=== PATIENT | female | born 1955 | race Caucasian/White ===

== ENCOUNTER 2022-01-01 15:15 | Emergency (ER) | payer MEDICARE ==
[2022-01-01 16:08] LABS: #Monocytes 0.5 10x3/uL (0.0-1.1); #Neutrophils 6.3 10x3/uL (1.5-8.4); %Basophils 0.1 % (0.0-2.0); %Lymphocytes 21.5 % (18.0-47.0); %Monocytes 6.2 % (0.0-10.0); %Neutrophils 71.5 % (40.0-75.0); Hemoglobin 12.2 g/dL (12.0-15.5); Mean Corpuscular HGB CONC 32.4 g/dL (32.0-36.0); Mean Corpuscular Hemoglobin 27.9 pg (27.0-33.0); Mean Corpuscular Volume 85.8 fl (81.6-98.3); Mean Platelet Volume 9.4 fl (7.4-10.4); Platelet Count 265 10x3/uL (150-450); RBC Distribution Width 13.2 % (11.5-14.5); Red Blood Cell (RBC) Count 4.38 10x6/uL (3.90-5.03); White Blood Cell (WBC) Count 8.8 10x3/uL (3.5-10.5)
[2022-01-01 16:19] LABS: ALT (SGPT) 13 U/L (8-55); AST (SGOT) 13 U/L (5-34); Albumin 4.3 g/dL (3.4-4.8); Alkaline Phosphatase 130 U/L (40-110); Anion Gap 22 mmol/L (10-20); BUN (Urea Nitrogen) 11 mg/dL (9.8-20.1); Bilirubin, Total 0.2 mg/dL (0.2-1.2); Calc. Creatinine Clearance 0 mL/min (70-130); Calcium 8.9 mg/dL (7.8-10.44); Carbon Dioxide 21 mmol/L (23-31); Chloride 99 mmol/L (98-107); Globulin 3.1 g/dL (2.4-3.5); Glucose 144 mg/dL (80-115); Magnesium 1.8 mg/dL (1.6-2.6); Potassium 4.9 mmol/L (3.5-5.1); Protein, Total 7.4 g/dL (5.8-8.1); Sodium 137 mmol/L (136-145)
[2022-01-01 16:43] LABS: Free T4 (Free Thyroxine) 1.1 ng/dL (0.70-1.48); Thyroid Stimulating Hormone 2.599 uIU/mL (0.35-4.94)
== END 2022-01-01 17:20 | disposition home or self-care (01) ==
LOC: CSHERS 15:15
DX: Z71.1 Person with feared health complaint in whom no diagnosis is made (principal); E11.9 Type 2 diabetes mellitus without complications
CPT/HCPCS: 80053; 83735; 83880; 84439; 84443; 84481; 84484; 85025; 93005

== ENCOUNTER 2022-12-20 03:41 | Emergency (ER) | payer MEDICARE ==
[2022-12-20] MEDS ORDERED: Metoclopramide HCl 10 MG TAB ONE (03:56)
[2022-12-20] MEDS ORDERED: Haloperidol Lactate 5 MG/ML VIAL ONE (05:02)
== END 2022-12-20 06:15 | disposition home or self-care (01) ==
LOC: CSHERS 03:41
DX: R11.0 Nausea (principal); E11.9 Type 2 diabetes mellitus without complications; J44.9 Chronic obstructive pulmonary disease, unspecified
CPT/HCPCS: 96372; 99283; J1630

== ENCOUNTER 2022-12-29 17:37 | Inpatient (IN) | payer MEDICARE ==
[2022-12-29 18:23] LABS: Acetaminophen Less than 10 mcg/mL (10.0-30.0); Alcohol Less than 10.0 mg/dL (Less than 10); Lipase 25 U/L (8-78); Magnesium 1.2 mg/dL (1.6-2.6); Salicylate Less than 8.0 mg/dL (15.0-30.0)
[2022-12-29 18:24] LABS: #Eosinphils 0.1 10x3/uL (0.0-0.5); #Monocytes 1.1 10x3/uL (0.0-1.1); #Neutrophils 9.4 10x3/uL (1.5-8.4); %Basophils 0.2 % (0.0-2.0); %Eosinophils 0.7 % (0.0-6.0); %Lymphocytes 13.8 % (18.0-47.0); %Monocytes 8.5 % (0.0-10.0); %Neutrophils 75.7 % (40.0-75.0); ALT (SGPT) 15 U/L (8-55); AST (SGOT) 21 U/L (5-34); Albumin 4.6 g/dL (3.4-4.8); Alkaline Phosphatase 142 U/L (40-110); Anion Gap 20 mmol/L (10-20); BUN (Urea Nitrogen) 7 mg/dL (9.8-20.1); Bilirubin, Total 0.5 mg/dL (0.2-1.2); Calc. Creatinine Clearance 0 mL/min (70-130); Calcium 9.2 mg/dL (7.8-10.44); Carbon Dioxide 27 mmol/L (23-31); Chloride 75 mmol/L (98-107); Estimated GFR 77; Globulin 2.9 g/dL (2.4-3.5); Glucose 137 mg/dL (80-115); Hemoglobin 14.1 g/dL (12.0-15.5); Mean Corpuscular HGB CONC 35.3 g/dL (32.0-36.0); Mean Corpuscular Hemoglobin 27.3 pg (27.0-33.0); Mean Corpuscular Volume 77.2 fl (81.6-98.3); Platelet Count 382 10x3/uL (150-450); Protein, Total 7.5 g/dL (5.8-8.1); RBC Distribution Width 12.9 % (11.5-14.5); Red Blood Cell (RBC) Count 5.17 10x6/uL (3.90-5.03); White Blood Cell (WBC) Count 12.4 10x3/uL (3.5-10.5)
[2022-12-29 18:27] LABS: Sodium 118 mmol/L (136-145)
[2022-12-29 18:29] LABS: Bilirubin Neg (Negative); Blood, Urine 10 (Negative); Clarity Clear (Clear); Glucose, Urine (Dipstick) Normal (Negative); Ketone, Urine Negative (Negative); Leukocyte 500 (Negative); Nitrite Negative (Negative); Protein, Urine (Dipstick) 15 mg/dl (Neg-Trace); Urobilinogen Normal mg/dL (Less than 2)
[2022-12-29 18:37] LABS: Amphetamine Not Detected (NotDetected); Barbiturates Screen Not Detected (NotDetected); Benzodiazepine Screen Not Detected (NotDetected); Cocaine Metabolite Screen Not Detected (NotDetected); Methadone Not Detected (NotDetected); Methamphetamine Not Detected (NotDetected); Opiate Screen Not Detected (NotDetected); Oxycodone Screen Not Detected (NotDetected); Phencyclidine (PCP) Not Detected (NotDetected); THC/Cannabinoid Screen Not Detected (NotDetected); Tricyclic Screen Not Detected (NotDetected)
[2022-12-29 18:38] LABS: CAUTI Indications for Culture Alt mental st,lethar; RBC/HPF 0-3 HPF (0-3); Squamous Epithelial 0-3 HPF (0-3); WBC/HPF 0-3 HPF (0-3)
[2022-12-29 18:39] LABS: Bacteria/HPF 3+ HPF (None Seen); Mucous/LPF 1+ LPF (<2+); Urine Culture Reflex No No
[2022-12-29 18:49] LABS: Actual Bicarbonate (HCO3v) 27.4 mEq/L (22-28); Base Excess 4.9 mEq/L (-2 - +2); Calcium, Ionized (venous) 0.87 mmol/L (1.16-1.32); Chloride (VBG) 77 mmol/L (98-106); Hematocrit-VBG 45 % (36.0-47.0); Hemoglobin (Hb) 15.2 g/dL (11.7-16.1); Potassium (VBG) 5.82 mmol/L (3.70-5.30); Puncture Site Other Site; RapidComm Collect By CBN; Sodium 115.6 mmol/L (133-146); pH (venous) 7.523 (7.32-7.43)
[2022-12-29] MEDS ORDERED: Senokot S 8.6-50 MG TAB PO PRN (19:14)
[2022-12-29] MEDS ORDERED: Glucagon 1 MG/ML KIT IM PRN (19:14)
[2022-12-29] MEDS ORDERED: Guaifenesin DM 100-10/5 ML UDCUP PO PRN (19:14)
[2022-12-29] MEDS ORDERED: HumaLOG 300 UNITS/3 ML VIAL SC PRN (19:14)
[2022-12-29] MEDS ORDERED: Calcium Carbonate 500 MG ChewTAB PO PRN (19:14)
[2022-12-29] MEDS ORDERED: Dextrose 5% in Water 1,000 ML IV PRN (19:14)
[2022-12-29] MEDS ORDERED: Dextrose 50% Abboject 50 ML SYRINGE SLOW IVP PRN (19:14)
[2022-12-29] MEDS ORDERED: Ipratropium/Albuterol 3 ML NEB NEB PRN (19:23)
[2022-12-29] MEDS ORDERED: LOKELMA 10 GM PACKET PO SCH (20:30)
[2022-12-29] MEDS ORDERED: Magnesium 2 GM/50 ML(in water) 2 GM in Premix Bag 1 BAG IVPB SCH (20:30)
[2022-12-29] MEDS ORDERED: Sodium Chloride 3% 100 ML IVPB SCH ×2 (20:30→23:59)
[2022-12-29] MEDS ORDERED: Famotidine/PF 20 mg/2ml Vial ONE (21:36)
[2022-12-29] MEDS: cefTRIAXone\\ROCEPHIN 1 GM in Sodium Chloride 0.9% 100 ML IVPB SCH (21:40)
[2022-12-29] MEDS: Famotidine/PF 20 mg/2ml Vial SLOW IVP SCH (21:41)
[2022-12-29] MEDS: Mometasone/Formoterol 60 PUFF AER INH SCH (22:19)
[2022-12-29] MEDS: Acetaminophen 325 MG TAB PO PRN (23:01)
[2022-12-29 23:54] LABS: Anion Gap 16 mmol/L (10-20); BUN (Urea Nitrogen) 6 mg/dL (9.8-20.1); Calc. Creatinine Clearance 175 mL/min (70-130); Calcium 8.4 mg/dL (7.8-10.44); Carbon Dioxide 28 mmol/L (23-31); Chloride 78 mmol/L (98-107); Estimated GFR 93; Glucose 121 mg/dL (80-115)
[2022-12-29 23:56] LABS: Sodium 119 mmol/L (136-145)
[2022-12-30 04:40] LABS: Hemoglobin 12.5 g/dL (12.0-15.5); Mean Corpuscular HGB CONC 34.8 g/dL (32.0-36.0); Mean Corpuscular Hemoglobin 26.9 pg (27.0-33.0); Mean Corpuscular Volume 77.4 fl (81.6-98.3); Mean Platelet Volume 8.7 fl (7.4-10.4); Platelet Count 313 10x3/uL (150-450); RBC Distribution Width 12.9 % (11.5-14.5); Red Blood Cell (RBC) Count 4.64 10x6/uL (3.90-5.03); White Blood Cell (WBC) Count 11.9 10x3/uL (3.5-10.5)
[2022-12-30 04:54] LABS: Anion Gap 17 mmol/L (10-20); BUN (Urea Nitrogen) 6 mg/dL (9.8-20.1); Calc. Creatinine Clearance 186 mL/min (70-130); Calcium 8.6 mg/dL (7.8-10.44); Carbon Dioxide 26 mmol/L (23-31); Chloride 81 mmol/L (98-107); Estimated GFR 97; Glucose 121 mg/dL (80-115); Magnesium 1.9 mg/dL (1.6-2.6); Potassium 2.8 mmol/L (3.5-5.1); Sodium 121 mmol/L (136-145)
[2022-12-30 04:55] LABS: MDiff Complete? YES
[2022-12-30] MEDS: Acetaminophen 325 MG TAB PO PRN ×2 (05:15→14:58)
[2022-12-30 05:25] LABS: Platelet Adequacy Comment Appears Adequate
[2022-12-30 05:26] LABS: Band 10 % (5-11); Lymphocytes 16 % (21-51); Monocytes 9 % (0-10); Neutrophil 65 % (42-75); RBC Morph Comment Within Normal Limits
[2022-12-30] MEDS ORDERED: Potassium Chloride 20 MEQ TAB PO SCH ×2 (05:30→08:30)
[2022-12-30] MEDS: Ondansetron PF 4 MG/2 ML Vial IVP PRN ×2 (05:37→14:11)
[2022-12-30 08:25] LABS: Anion Gap 18 mmol/L (10-20); BUN (Urea Nitrogen) 6 mg/dL (9.8-20.1); Calc. Creatinine Clearance 180 mL/min (70-130); Calcium 8.5 mg/dL (7.8-10.44); Carbon Dioxide 23 mmol/L (23-31); Chloride 81 mmol/L (98-107); Estimated GFR 96; Glucose 112 mg/dL (80-115)
[2022-12-30 08:28] LABS: Sodium 119 mmol/L (136-145)
[2022-12-30] MEDS: Mometasone/Formoterol 60 PUFF AER INH SCH ×2 (08:30→20:14)
[2022-12-30] MEDS: Famotidine/PF 20 mg/2ml Vial SLOW IVP SCH ×2 (08:32→20:46)
[2022-12-30] MEDS ORDERED: Sodium Chloride 3% 100 ML IVPB SCH (09:30)
[2022-12-30 11:01] LABS: Anion Gap 14 mmol/L (10-20); BUN (Urea Nitrogen) 6 mg/dL (9.8-20.1); Calc. Creatinine Clearance 173 mL/min (70-130); Calcium 8.9 mg/dL (7.8-10.44); Carbon Dioxide 31 mmol/L (23-31); Chloride 83 mmol/L (98-107); Estimated GFR 91; Glucose 113 mg/dL (80-115); Potassium 3.4 mmol/L (3.5-5.1); Sodium 125 mmol/L (136-145)
[2022-12-30 12:52] LABS: Potassium, Urine 10.3 mmol/L
[2022-12-30 14:49] LABS: Anion Gap 17 mmol/L (10-20); BUN (Urea Nitrogen) 5 mg/dL (9.8-20.1); Calc. Creatinine Clearance 175 mL/min (70-130); Carbon Dioxide 26 mmol/L (23-31); Chloride 87 mmol/L (98-107); Estimated GFR 93; Glucose 107 mg/dL (80-115); Potassium 3.7 mmol/L (3.5-5.1); Sodium 126 mmol/L (136-145)
[2022-12-30] MEDS ORDERED: Melatonin 3 MG TAB PO PRN (15:21)
[2022-12-30] MEDS ORDERED: HYDROcodone/Acetaminophen 5/325 mg Tablet PO SCH (18:30)
[2022-12-30] MEDS ORDERED: FLUoxetine HCl 10 MG CAP PO SCH (19:00)
[2022-12-30] MEDS ORDERED: Bupropion 150 MG SR TAB PO SCH (19:00)
[2022-12-30] MEDS: cefTRIAXone\\ROCEPHIN 1 GM in Sodium Chloride 0.9% 100 ML IVPB SCH (20:41)
[2022-12-30] MEDS: hydrOXYzine Pamoate 25 mg Capsule PO SCH (20:48)
[2022-12-30] MEDS: Nystatin Powder 15 GM BOT TOP SCH (21:15)
[2022-12-30 22:06] LABS: Sodium 122 mmol/L (136-145)
[2022-12-31 03:48] LABS: #Monocytes 1.1 10x3/uL (0.0-1.1); #Neutrophils 7.8 10x3/uL (1.5-8.4); %Basophils 0.3 % (0.0-2.0); %Eosinophils 0.2 % (0.0-6.0); %Lymphocytes 17.6 % (18.0-47.0); %Monocytes 10.3 % (0.0-10.0); %Neutrophils 71.1 % (40.0-75.0); Hemoglobin 12.9 g/dL (12.0-15.5); Mean Corpuscular HGB CONC 33.9 g/dL (32.0-36.0); Mean Corpuscular Hemoglobin 26.9 pg (27.0-33.0); Mean Corpuscular Volume 79.3 fl (81.6-98.3); Mean Platelet Volume 9.1 fl (7.4-10.4); Platelet Count 332 10x3/uL (150-450); RBC Distribution Width 13.2 % (11.5-14.5); Red Blood Cell (RBC) Count 4.79 10x6/uL (3.90-5.03)
[2022-12-31 03:55] LABS: Anion Gap 15 mmol/L (10-20); BUN (Urea Nitrogen) 9 mg/dL (9.8-20.1); Calc. Creatinine Clearance 180 mL/min (70-130); Calcium 8.5 mg/dL (7.8-10.44); Carbon Dioxide 27 mmol/L (23-31); Chloride 85 mmol/L (98-107); Estimated GFR 96; Glucose 98 mg/dL (80-115); Magnesium 1.8 mg/dL (1.6-2.6); Potassium 3.2 mmol/L (3.5-5.1); Sodium 124 mmol/L (136-145)
[2022-12-31] MEDS: Levothyroxine Sodium 100 MCG TAB PO SCH (05:33)
[2022-12-31] MEDS: Bupropion 150 MG SR TAB PO SCH (08:43)
[2022-12-31] MEDS: hydrOXYzine Pamoate 25 mg Capsule PO SCH ×4 (08:44→20:34)
[2022-12-31] MEDS: FLUoxetine HCl 10 MG CAP PO SCH (08:44)
[2022-12-31] MEDS: Acetaminophen 325 MG TAB PO PRN ×2 (08:44→22:35)
[2022-12-31] MEDS: Nystatin Powder 15 GM BOT TOP SCH ×2 (08:44→20:35)
[2022-12-31] MEDS: Famotidine/PF 20 mg/2ml Vial SLOW IVP SCH ×2 (08:44→20:31)
[2022-12-31] MEDS: Mometasone/Formoterol 60 PUFF AER INH SCH ×2 (09:24→19:18)
[2022-12-31] MEDS ORDERED: HYDROcodone/Acetaminophen 5/325 mg Tablet PO SCH (10:00)
[2022-12-31 10:29] LABS: Anion Gap 15 mmol/L (10-20); BUN (Urea Nitrogen) 8 mg/dL (9.8-20.1); Calc. Creatinine Clearance 167 mL/min (70-130); Calcium 8.5 mg/dL (7.8-10.44); Carbon Dioxide 25 mmol/L (23-31); Chloride 86 mmol/L (98-107); Estimated GFR 88; Glucose 225 mg/dL (80-115); Potassium 3.2 mmol/L (3.5-5.1); Sodium 123 mmol/L (136-145)
[2022-12-31 15:30] LABS: Anion Gap 15 mmol/L (10-20); BUN (Urea Nitrogen) 7 mg/dL (9.8-20.1); Calc. Creatinine Clearance 174 mL/min (70-130); Calcium 8.8 mg/dL (7.8-10.44); Carbon Dioxide 29 mmol/L (23-31); Chloride 84 mmol/L (98-107); Estimated GFR 93; Glucose 102 mg/dL (80-115); Potassium 3.6 mmol/L (3.5-5.1); Sodium 124 mmol/L (136-145)
[2022-12-31] MEDS ORDERED: Lorazepam 2 MG/ML VIAL SLOW IVP PRN (17:44)
[2022-12-31] MEDS: HYDROcodone/Acetaminophen 5/325 mg Tablet PO PRN (19:57)
[2022-12-31] MEDS: cefTRIAXone\\ROCEPHIN 1 GM in Sodium Chloride 0.9% 100 ML IVPB SCH (20:31)
[2022-12-31] MEDS ORDERED: CLOZAPINE 100 MG PO SCH (21:00)
[2022-12-31] MEDS: Ondansetron PF 4 MG/2 ML Vial IVP PRN (21:14)
[2023-01-01 03:31] LABS: #Neutrophils 9.4 10x3/uL (1.5-8.4); %Basophils 0.2 % (0.0-2.0); %Eosinophils 0.1 % (0.0-6.0); %Monocytes 8.2 % (0.0-10.0); %Neutrophils 75.9 % (40.0-75.0); Mean Corpuscular HGB CONC 33.8 g/dL (32.0-36.0); Mean Platelet Volume 8.6 fl (7.4-10.4); Platelet Count 312 10x3/uL (150-450); RBC Distribution Width 13.3 % (11.5-14.5); Red Blood Cell (RBC) Count 4.44 10x6/uL (3.90-5.03); White Blood Cell (WBC) Count 12.3 10x3/uL (3.5-10.5)
[2023-01-01 03:45] LABS: Anion Gap 14 mmol/L (10-20); BUN (Urea Nitrogen) 6 mg/dL (9.8-20.1); Calc. Creatinine Clearance 187 mL/min (70-130); Calcium 8.8 mg/dL (7.8-10.44); Carbon Dioxide 27 mmol/L (23-31); Chloride 86 mmol/L (98-107); Estimated GFR 97; Glucose 131 mg/dL (80-115); Potassium 3.1 mmol/L (3.5-5.1); Sodium 124 mmol/L (136-145)
[2023-01-01] MEDS ORDERED: Nitroglycerin 2% Ointment 1 INCH/1 GM Packet TOP SCH (04:45)
[2023-01-01] MEDS: HYDROcodone/Acetaminophen 5/325 mg Tablet PO PRN ×3 (05:04→21:06)
[2023-01-01] MEDS: Levothyroxine Sodium 100 MCG TAB PO SCH (05:06)
[2023-01-01] MEDS: Mometasone/Formoterol 60 PUFF AER INH SCH ×2 (07:16→19:10)
[2023-01-01] MEDS ORDERED: hydrALAZINE 20 MG/ML VIAL SLOW IVP PRN (07:35)
[2023-01-01] MEDS ORDERED: Tolvaptan 15 MG TAB PO SCH (08:15)
[2023-01-01] MEDS: FLUoxetine HCl 10 MG CAP PO SCH (08:49)
[2023-01-01] MEDS: Bupropion 150 MG SR TAB PO SCH (08:49)
[2023-01-01] MEDS: Famotidine/PF 20 mg/2ml Vial SLOW IVP SCH ×2 (08:49→20:50)
[2023-01-01] MEDS: hydrOXYzine Pamoate 25 mg Capsule PO SCH ×4 (08:49→20:50)
[2023-01-01] MEDS: Nystatin Powder 15 GM BOT TOP SCH ×2 (08:50→20:50)
[2023-01-01] MEDS: Ondansetron PF 4 MG/2 ML Vial IVP PRN (09:56)
[2023-01-01 11:22] LABS: Anion Gap 14 mmol/L (10-20); BUN (Urea Nitrogen) 6 mg/dL (9.8-20.1); Calc. Creatinine Clearance 177 mL/min (70-130); Calcium 9.2 mg/dL (7.8-10.44); Carbon Dioxide 29 mmol/L (23-31); Chloride 88 mmol/L (98-107); Estimated GFR 94; Glucose 138 mg/dL (80-115); Potassium 3.3 mmol/L (3.5-5.1); Sodium 128 mmol/L (136-145)
[2023-01-01] MEDS ORDERED: Potassium Chloride 20 MEQ TAB PO SCH (13:15)
[2023-01-01] MEDS ORDERED: carBAMazepine 100 mg Chewable Tablet PO SCH (15:00)
[2023-01-01 17:02] LABS: Anion Gap 14 mmol/L (10-20); BUN (Urea Nitrogen) 6 mg/dL (9.8-20.1); Calc. Creatinine Clearance 170 mL/min (70-130); Calcium 9.6 mg/dL (7.8-10.44); Carbon Dioxide 31 mmol/L (23-31); Chloride 88 mmol/L (98-107); Estimated GFR 90; Glucose 133 mg/dL (80-115); Potassium 3.8 mmol/L (3.5-5.1); Sodium 129 mmol/L (136-145)
[2023-01-01] MEDS: cefTRIAXone\\ROCEPHIN 1 GM in Sodium Chloride 0.9% 100 ML IVPB SCH (20:50)
[2023-01-01] MEDS: QUEtiapine 100 MG TAB PO SCH (20:50)
[2023-01-01] MEDS: Valproate Sodium 500 MG, Admixture Fee 1 EACH in Sodium Chloride 0.9% 100 ML IVPB SCH (20:51)
[2023-01-01 21:19] LABS: Sodium 131 mmol/L (136-145)
[2023-01-02] MEDS: HYDROcodone/Acetaminophen 5/325 mg Tablet PO PRN ×3 (03:36→17:47)
[2023-01-02 04:36] LABS: Hemoglobin 12.4 g/dL (12.0-15.5); MDiff Complete? YES; Mean Corpuscular HGB CONC 33.2 g/dL (32.0-36.0); Mean Corpuscular Hemoglobin 27.2 pg (27.0-33.0); Mean Corpuscular Volume 81.8 fl (81.6-98.3); Mean Platelet Volume 8.8 fl (7.4-10.4); Platelet Count 307 10x3/uL (150-450); RBC Distribution Width 13.5 % (11.5-14.5); Red Blood Cell (RBC) Count 4.56 10x6/uL (3.90-5.03); White Blood Cell (WBC) Count 11.8 10x3/uL (3.5-10.5)
[2023-01-02 04:47] LABS: Anion Gap 14 mmol/L (10-20); BUN (Urea Nitrogen) 9 mg/dL (9.8-20.1); Calc. Creatinine Clearance 155 mL/min (70-130); Calcium 9.2 mg/dL (7.8-10.44); Carbon Dioxide 30 mmol/L (23-31); Chloride 90 mmol/L (98-107); Estimated GFR 81; Glucose 143 mg/dL (80-115); Magnesium 1.9 mg/dL (1.6-2.6); Potassium 4.1 mmol/L (3.5-5.1); Sodium 130 mmol/L (136-145)
[2023-01-02 05:21] LABS: Platelet Adequacy Comment Appears Adequate
[2023-01-02 05:22] LABS: RBC Morph Comment Within Normal Limits
[2023-01-02 05:28] LABS: Band 6 % (5-11); Eosinophils 1 % (0-10); Lymphocytes 15 % (21-51); Monocytes 9 % (0-10); Neutrophil 69 % (42-75)
[2023-01-02] MEDS: Levothyroxine Sodium 100 MCG TAB PO SCH (05:43)
[2023-01-02] MEDS: Mometasone/Formoterol 60 PUFF AER INH SCH ×2 (07:40→19:36)
[2023-01-02] MEDS: FLUoxetine HCl 10 MG CAP PO SCH (08:55)
[2023-01-02] MEDS: Bupropion 150 MG SR TAB PO SCH (08:55)
[2023-01-02] MEDS: hydrOXYzine Pamoate 25 mg Capsule PO SCH ×4 (08:55→20:53)
[2023-01-02] MEDS: Nystatin Powder 15 GM BOT TOP SCH ×2 (08:55→21:30)
[2023-01-02] MEDS: Valproate Sodium 500 MG, Admixture Fee 1 EACH in Sodium Chloride 0.9% 100 ML IVPB SCH ×2 (08:55→20:54)
[2023-01-02] MEDS ORDERED: VANCOMYCIN 2 GRAM/400 ML BAG 2 GM in Premix Bag 1 BAG IVPB SCH (11:45)
[2023-01-02 14:11] LABS: Potassium 4.3 mmol/L (3.5-5.1); Sodium 130 mmol/L (136-145)
[2023-01-02 14:12] LABS: Anion Gap 15 mmol/L (10-20); Carbon Dioxide 26 mmol/L (23-31); Chloride 93 mmol/L (98-107)
[2023-01-02 14:13] LABS: BUN (Urea Nitrogen) 10 mg/dL (9.8-20.1); Calc. Creatinine Clearance 170 mL/min (70-130); Estimated GFR 93
[2023-01-02 14:14] LABS: Calcium 9.2 mg/dL (7.8-10.44); Glucose 120 mg/dL (80-115)
[2023-01-02] MEDS: HumaLOG 300 UNITS/3 ML VIAL SC PRN (20:14)
[2023-01-02] MEDS ORDERED: Lorazepam 2 MG/ML VIAL SLOW IVP SCH (20:30)
[2023-01-02] MEDS: QUEtiapine 100 MG TAB PO SCH (20:59)
[2023-01-02] MEDS: cefTRIAXone\\ROCEPHIN 1 GM in Sodium Chloride 0.9% 100 ML IVPB SCH (20:59)
[2023-01-02] MEDS ORDERED: Vancomycin HCl 1 GM in Sodium Chloride 0.9% 250 ML 250 ML IVPB SCH (21:00)
[2023-01-02 21:12] LABS: Anion Gap 15 mmol/L (10-20); BUN (Urea Nitrogen) 12 mg/dL (9.8-20.1); CK (CPK) 74 U/L (29-168); Calc. Creatinine Clearance 151 mL/min (70-130); Carbon Dioxide 25 mmol/L (23-31); Chloride 92 mmol/L (98-107); Estimated GFR 81; Glucose 177 mg/dL (80-115); Magnesium 1.7 mg/dL (1.6-2.6); Potassium 3.9 mmol/L (3.5-5.1); Sodium 128 mmol/L (136-145)
[2023-01-03 03:13] LABS: #Monocytes 0.9 10x3/uL (0.0-1.1); #Neutrophils 9.8 10x3/uL (1.5-8.4); %Basophils 0.2 % (0.0-2.0); %Lymphocytes 12.4 % (18.0-47.0); %Monocytes 7.6 % (0.0-10.0); %Neutrophils 79.2 % (40.0-75.0); Hemoglobin 11.6 g/dL (12.0-15.5); Mean Corpuscular HGB CONC 32.9 g/dL (32.0-36.0); Mean Corpuscular Hemoglobin 26.9 pg (27.0-33.0); Mean Corpuscular Volume 81.7 fl (81.6-98.3); Mean Platelet Volume 8.2 fl (7.4-10.4); Platelet Count 261 10x3/uL (150-450); RBC Distribution Width 13.6 % (11.5-14.5); Red Blood Cell (RBC) Count 4.32 10x6/uL (3.90-5.03); White Blood Cell (WBC) Count 12.3 10x3/uL (3.5-10.5)
[2023-01-03 03:20] LABS: Anion Gap 15 mmol/L (10-20); BUN (Urea Nitrogen) 11 mg/dL (9.8-20.1); Calc. Creatinine Clearance 175 mL/min (70-130); Calcium 8.8 mg/dL (7.8-10.44); Carbon Dioxide 24 mmol/L (23-31); Chloride 93 mmol/L (98-107); Estimated GFR 96; Glucose 142 mg/dL (80-115); Potassium 3.9 mmol/L (3.5-5.1); Sodium 128 mmol/L (136-145)
[2023-01-03] MEDS: VANCOMYCIN 1.25 GM/250 ML BAG 1.25 GM in Premix Bag 1 BAG IVPB SCH ×2 (04:18→16:19)
[2023-01-03] MEDS: Levothyroxine Sodium 100 MCG TAB PO SCH (05:51)
[2023-01-03] MEDS: Mometasone/Formoterol 60 PUFF AER INH SCH ×2 (07:30→19:20)
[2023-01-03] MEDS: Valproate Sodium 500 MG, Admixture Fee 1 EACH in Sodium Chloride 0.9% 100 ML IVPB SCH ×2 (08:01→20:59)
[2023-01-03] MEDS: Nystatin Powder 15 GM BOT TOP SCH ×2 (08:03→21:04)
[2023-01-03] MEDS: HYDROcodone/Acetaminophen 5/325 mg Tablet PO PRN (12:10)
[2023-01-03] MEDS: Miconazole 2% Cream 30 GM TUBE TOP SCH ×2 (14:17→21:03)
[2023-01-03 16:14] LABS: Norclozapine Less than 20 ng/mL (Not Estab.)
[2023-01-03 17:15] LABS: Anion Gap 13 mmol/L (10-20); BUN (Urea Nitrogen) 8 mg/dL (9.8-20.1); Calc. Creatinine Clearance 189 mL/min (70-130); Calcium 9.1 mg/dL (7.8-10.44); Carbon Dioxide 30 mmol/L (23-31); Chloride 91 mmol/L (98-107); Estimated GFR 98; Glucose 98 mg/dL (80-115); Potassium 4.2 mmol/L (3.5-5.1); Sodium 130 mmol/L (136-145)
[2023-01-03] MEDS: ACYCLOVIR SODIUM IVPB SCH (20:42)
[2023-01-03] MEDS: SODIUM CHLORIDE IVPB SCH (20:42)
[2023-01-03] MEDS: ADMIXTURE FEE IVPB SCH (20:42)
[2023-01-03] MEDS: cefTRIAXone\\ROCEPHIN 1 GM in Sodium Chloride 0.9% 100 ML IVPB SCH (20:59)
[2023-01-04] MEDS: ADMIXTURE FEE IVPB SCH ×3 (03:11→20:34)
[2023-01-04] MEDS: ACYCLOVIR SODIUM IVPB SCH ×3 (03:11→20:34)
[2023-01-04] MEDS: SODIUM CHLORIDE IVPB SCH ×3 (03:11→20:34)
[2023-01-04 03:30] LABS: #Monocytes 0.9 10x3/uL (0.0-1.1); #Neutrophils 7.5 10x3/uL (1.5-8.4); %Basophils 0.1 % (0.0-2.0); %Lymphocytes 13.3 % (18.0-47.0); %Monocytes 8.7 % (0.0-10.0); %Neutrophils 77.2 % (40.0-75.0); Hemoglobin 11.1 g/dL (12.0-15.5); Mean Corpuscular HGB CONC 33.7 g/dL (32.0-36.0); Mean Corpuscular Hemoglobin 27.4 pg (27.0-33.0); Mean Corpuscular Volume 81.2 fl (81.6-98.3); Mean Platelet Volume 8.5 fl (7.4-10.4); Platelet Count 263 10x3/uL (150-450); RBC Distribution Width 13.6 % (11.5-14.5); Red Blood Cell (RBC) Count 4.05 10x6/uL (3.90-5.03); White Blood Cell (WBC) Count 9.8 10x3/uL (3.5-10.5)
[2023-01-04 03:32] LABS: Anion Gap 14 mmol/L (10-20); BUN (Urea Nitrogen) 7 mg/dL (9.8-20.1); Calc. Creatinine Clearance 198 mL/min (70-130); Calcium 8.8 mg/dL (7.8-10.44); Carbon Dioxide 27 mmol/L (23-31); Chloride 92 mmol/L (98-107); Estimated GFR 99; Glucose 137 mg/dL (80-115); Sodium 129 mmol/L (136-145)
[2023-01-04 03:33] LABS: ALT (SGPT) 8 U/L (8-55); AST (SGOT) 10 U/L (5-34); Albumin 3.2 g/dL (3.4-4.8); Alkaline Phosphatase 93 U/L (40-110); Bilirubin, Direct 0.1 mg/dL (0.1-0.3); Bilirubin, Total 0.2 mg/dL (0.2-1.2); Protein, Total 5.8 g/dL (5.8-8.1)
[2023-01-04 03:40] LABS: Vancomycin, Trough 15.3 ug/mL
[2023-01-04] MEDS: Levothyroxine Sodium 100 MCG TAB PO SCH (05:22)
[2023-01-04] MEDS: VANCOMYCIN 1.25 GM/250 ML BAG 1.25 GM in Premix Bag 1 BAG IVPB SCH ×2 (05:22→17:08)
[2023-01-04] MEDS: Mometasone/Formoterol 60 PUFF AER INH SCH ×2 (07:50→19:07)
[2023-01-04] MEDS: Nystatin Powder 15 GM BOT TOP SCH ×2 (08:29→21:07)
[2023-01-04] MEDS: Miconazole 2% Cream 30 GM TUBE TOP SCH ×2 (08:29→21:24)
[2023-01-04] MEDS ORDERED: Lorazepam 0.5 MG TAB PO SCH (09:00)
[2023-01-04] MEDS: Sodium Chloride 1 GM TAB PO SCH (09:17)
[2023-01-04] MEDS: Valproate Sodium 500 MG, Admixture Fee 1 EACH in Sodium Chloride 0.9% 100 ML IVPB SCH ×2 (09:17→21:07)
[2023-01-04] MEDS ORDERED: Magnevist 469MG/ML 20 ML VIAL ONE ×2 (10:17→13:38)
[2023-01-04] MEDS: HYDROcodone/Acetaminophen 5/325 mg Tablet PO PRN (12:46)
[2023-01-04] MEDS: cefTRIAXone\\ROCEPHIN 1 GM in Sodium Chloride 0.9% 100 ML IVPB SCH (21:04)
[2023-01-05 04:09] LABS: #Monocytes 0.8 10x3/uL (0.0-1.1); #Neutrophils 6.4 10x3/uL (1.5-8.4); %Basophils 0.1 % (0.0-2.0); %Lymphocytes 14.2 % (18.0-47.0); %Monocytes 9.5 % (0.0-10.0); Mean Corpuscular HGB CONC 33.6 g/dL (32.0-36.0); Mean Corpuscular Hemoglobin 27.2 pg (27.0-33.0); Mean Corpuscular Volume 80.7 fl (81.6-98.3); Mean Platelet Volume 9.1 fl (7.4-10.4); Platelet Count 280 10x3/uL (150-450); RBC Distribution Width 13.5 % (11.5-14.5); Red Blood Cell (RBC) Count 4.05 10x6/uL (3.90-5.03); White Blood Cell (WBC) Count 8.6 10x3/uL (3.5-10.5)
[2023-01-05 04:14] LABS: Anion Gap 14 mmol/L (10-20); BUN (Urea Nitrogen) 8 mg/dL (9.8-20.1); Calc. Creatinine Clearance 215 mL/min (70-130); Calcium 8.8 mg/dL (7.8-10.44); Carbon Dioxide 25 mmol/L (23-31); Chloride 94 mmol/L (98-107); Estimated GFR 100; Glucose 133 mg/dL (80-115); Magnesium 1.5 mg/dL (1.6-2.6); Potassium 3.8 mmol/L (3.5-5.1); Sodium 129 mmol/L (136-145)
[2023-01-05] MEDS: SODIUM CHLORIDE IVPB SCH ×2 (04:23→12:29)
[2023-01-05] MEDS: ADMIXTURE FEE IVPB SCH ×2 (04:23→12:29)
[2023-01-05] MEDS: ACYCLOVIR SODIUM IVPB SCH ×2 (04:23→12:29)
[2023-01-05] MEDS: Levothyroxine Sodium 100 MCG TAB PO SCH (05:25)
[2023-01-05] MEDS: VANCOMYCIN 1.25 GM/250 ML BAG 1.25 GM in Premix Bag 1 BAG IVPB SCH (05:25)
[2023-01-05] MEDS: Valproate Sodium 500 MG, Admixture Fee 1 EACH in Sodium Chloride 0.9% 100 ML IVPB SCH ×3 (08:45→21:43)
[2023-01-05] MEDS: Miconazole 2% Cream 30 GM TUBE TOP SCH ×2 (08:46→20:47)
[2023-01-05] MEDS: Sodium Chloride 1 GM TAB PO SCH (08:46)
[2023-01-05] MEDS: Nystatin Powder 15 GM BOT TOP SCH ×2 (08:46→20:47)
[2023-01-05] MEDS: Mometasone/Formoterol 60 PUFF AER INH SCH ×2 (08:55→20:07)
[2023-01-05] MEDS: Ondansetron PF 4 MG/2 ML Vial IVP PRN (09:04)
[2023-01-05] MEDS ORDERED: Magnesium 2 GM/50 ML(in water) 2 GM in Premix Bag 1 BAG IVPB SCH (09:30)
[2023-01-05] MEDS ORDERED: Lorazepam 1 MG TAB PO PRN (12:08)
[2023-01-05] MEDS: HYDROcodone/Acetaminophen 5/325 mg Tablet PO PRN (15:13)
[2023-01-05] MEDS ORDERED: QUEtiapine 25 MG TAB PO PRN (15:24)
[2023-01-05] MEDS: Nitrofurantoin Monohyd/M-Cryst 100 MG CAP PO SCH (20:31)
[2023-01-05] MEDS: hydrOXYzine Pamoate 25 mg Capsule PO SCH (20:31)
[2023-01-05] MEDS: cefTRIAXone\\ROCEPHIN 1 GM in Sodium Chloride 0.9% 100 ML IVPB SCH (20:32)
[2023-01-05] MEDS: HumaLOG 300 UNITS/3 ML VIAL SC PRN (21:11)
[2023-01-06] MEDS: Levothyroxine Sodium 100 MCG TAB PO SCH (06:00)
[2023-01-06] MEDS: Sodium Chloride 1 GM TAB PO SCH (08:16)
[2023-01-06] MEDS: Nitrofurantoin Monohyd/M-Cryst 100 MG CAP PO SCH ×2 (08:16→20:36)
[2023-01-06] MEDS: Nystatin Powder 15 GM BOT TOP SCH ×2 (08:18→20:54)
[2023-01-06] MEDS: Miconazole 2% Cream 30 GM TUBE TOP SCH ×2 (08:19→20:37)
[2023-01-06] MEDS: Valproate Sodium 500 MG, Admixture Fee 1 EACH in Sodium Chloride 0.9% 100 ML IVPB SCH ×2 (08:23→20:37)
[2023-01-06] MEDS: HYDROcodone/Acetaminophen 5/325 mg Tablet PO PRN (14:22)
[2023-01-06] MEDS: Mometasone/Formoterol 60 PUFF AER INH SCH ×2 (19:11→19:12)
[2023-01-06] MEDS: hydrOXYzine Pamoate 25 mg Capsule PO SCH (20:36)
[2023-01-06] MEDS: QUEtiapine 25 MG TAB PO SCH (20:36)
[2023-01-07] MEDS: Levothyroxine Sodium 100 MCG TAB PO SCH (06:09)
[2023-01-07] MEDS: Mometasone/Formoterol 60 PUFF AER INH SCH ×2 (10:00→19:16)
[2023-01-07] MEDS: Sodium Chloride 1 GM TAB PO SCH (10:09)
[2023-01-07 10:10] LABS: #Monocytes 0.6 10x3/uL (0.0-1.1); #Neutrophils 4.6 10x3/uL (1.5-8.4); %Basophils 0.3 % (0.0-2.0); %Lymphocytes 19.9 % (18.0-47.0); %Monocytes 9.1 % (0.0-10.0); %Neutrophils 68.7 % (40.0-75.0); Hemoglobin 11.6 g/dL (12.0-15.5); Mean Corpuscular HGB CONC 32.4 g/dL (32.0-36.0); Mean Corpuscular Hemoglobin 27.3 pg (27.0-33.0); Mean Corpuscular Volume 84.2 fl (81.6-98.3); Mean Platelet Volume 8.4 fl (7.4-10.4); Platelet Count 305 10x3/uL (150-450); RBC Distribution Width 13.6 % (11.5-14.5); Red Blood Cell (RBC) Count 4.25 10x6/uL (3.90-5.03); White Blood Cell (WBC) Count 6.6 10x3/uL (3.5-10.5)
[2023-01-07] MEDS: Valproate Sodium 500 MG, Admixture Fee 1 EACH in Sodium Chloride 0.9% 100 ML IVPB SCH (10:10)
[2023-01-07] MEDS: Nitrofurantoin Monohyd/M-Cryst 100 MG CAP PO SCH ×2 (10:10→20:41)
[2023-01-07] MEDS: Nystatin Powder 15 GM BOT TOP SCH ×2 (10:10→20:43)
[2023-01-07] MEDS: Miconazole 2% Cream 30 GM TUBE TOP SCH ×2 (10:11→20:43)
[2023-01-07] MEDS: HYDROcodone/Acetaminophen 5/325 mg Tablet PO PRN (10:16)
[2023-01-07] MEDS: Ondansetron PF 4 MG/2 ML Vial IVP PRN (10:16)
[2023-01-07 10:26] LABS: Anion Gap 14 mmol/L (10-20); BUN (Urea Nitrogen) 6 mg/dL (9.8-20.1); Calc. Creatinine Clearance 198 mL/min (70-130); Calcium 9.4 mg/dL (7.8-10.44); Carbon Dioxide 29 mmol/L (23-31); Chloride 95 mmol/L (98-107); Estimated GFR 98; Glucose 127 mg/dL (80-115); Potassium 4.3 mmol/L (3.5-5.1); Sodium 134 mmol/L (136-145)
[2023-01-07] MEDS: hydrOXYzine Pamoate 25 mg Capsule PO SCH (20:42)
[2023-01-07] MEDS: QUEtiapine 25 MG TAB PO SCH (20:44)
[2023-01-07] MEDS ORDERED: Valproate Sodium 500 MG, Admixture Fee 1 EACH in Sodium Chloride 0.9% 100 ML IVPB SCH (21:00)
[2023-01-08] MEDS: Levothyroxine Sodium 100 MCG TAB PO SCH (05:51)
[2023-01-08] MEDS: Mometasone/Formoterol 60 PUFF AER INH SCH ×2 (07:40→19:05)
[2023-01-08] MEDS: Nystatin Powder 15 GM BOT TOP SCH ×2 (09:06→21:57)
[2023-01-08] MEDS: Miconazole 2% Cream 30 GM TUBE TOP SCH ×2 (09:07→21:58)
[2023-01-08] MEDS: Sodium Chloride 1 GM TAB PO SCH (09:07)
[2023-01-08] MEDS: Nitrofurantoin Monohyd/M-Cryst 100 MG CAP PO SCH ×2 (09:08→21:57)
[2023-01-08] MEDS: Valproate Sodium 500 MG, Admixture Fee 1 EACH in Sodium Chloride 0.9% 100 ML IVPB SCH ×2 (09:08→19:03)
[2023-01-08] MEDS: Ondansetron PF 4 MG/2 ML Vial IVP PRN (09:21)
[2023-01-08 10:29] LABS: Anion Gap 14 mmol/L (10-20); BUN (Urea Nitrogen) 8 mg/dL (9.8-20.1); Calc. Creatinine Clearance 197 mL/min (70-130); Calcium 9.2 mg/dL (7.8-10.44); Carbon Dioxide 29 mmol/L (23-31); Chloride 96 mmol/L (98-107); Estimated GFR 98; Glucose 109 mg/dL (80-115); Potassium 4.3 mmol/L (3.5-5.1); Sodium 135 mmol/L (136-145)
[2023-01-08] MEDS ORDERED: hydrOXYzine Pamoate 25 mg Capsule PO PRN (13:16)
[2023-01-08] MEDS: QUEtiapine 100 MG TAB PO SCH (21:55)
[2023-01-09] MEDS: Levothyroxine Sodium 100 MCG TAB PO SCH (05:10)
[2023-01-09] MEDS: Sodium Chloride 1 GM TAB PO SCH (08:00)
[2023-01-09] MEDS: Nystatin Powder 15 GM BOT TOP SCH ×2 (08:01→20:45)
[2023-01-09] MEDS: Miconazole 2% Cream 30 GM TUBE TOP SCH ×2 (08:01→21:25)
[2023-01-09] MEDS: Mometasone/Formoterol 60 PUFF AER INH SCH ×2 (08:36→19:50)
[2023-01-09 10:21] LABS: Anion Gap 14 mmol/L (10-20); BUN (Urea Nitrogen) 7 mg/dL (9.8-20.1); Calc. Creatinine Clearance 175 mL/min (70-130); Calcium 8.8 mg/dL (7.8-10.44); Carbon Dioxide 27 mmol/L (23-31); Chloride 98 mmol/L (98-107); Estimated GFR 93; Glucose 228 mg/dL (80-115); Potassium 3.8 mmol/L (3.5-5.1); Sodium 135 mmol/L (136-145)
[2023-01-09] MEDS ORDERED: Sodium Chloride 0.65% Nasal 44 ML BOT EA NARE PRN (13:27)
[2023-01-09] MEDS ORDERED: Moisturizing Cream (Eucerin) 113 GM JAR TOP PRN (13:27)
[2023-01-09] MEDS ORDERED: Bisacodyl 10 MG SUPP PR PRN (13:27)
[2023-01-09] MEDS ORDERED: Artificial Tear Sol 15 ML BOT EA EYE PRN (13:27)
[2023-01-09] MEDS ORDERED: hydrALAZINE 20 MG/ML VIAL SLOW IVP PRN (13:34)
[2023-01-09] MEDS ORDERED: Polyethylene Glycol 3350 17 GM Packet PO SCH (14:00)
[2023-01-09] MEDS: Estradiol 0.01% Vaginal Cream 42.5 gm Tube VAG SCH (20:43)
[2023-01-09] MEDS: QUEtiapine 100 MG TAB PO SCH (20:46)
[2023-01-10] MEDS: Levothyroxine Sodium 100 MCG TAB PO SCH (05:47)
[2023-01-10 05:50] VITALS: BMI 53.5
[2023-01-10] MEDS: Sodium Chloride 1 GM TAB PO SCH (09:56)
[2023-01-10] MEDS: Miconazole 2% Cream 30 GM TUBE TOP SCH ×2 (09:57→22:06)
[2023-01-10] MEDS: Polyethylene Glycol 3350 17 GM Packet PO SCH (09:58)
[2023-01-10] MEDS: Nystatin Powder 15 GM BOT TOP SCH ×2 (10:00→22:06)
[2023-01-10 10:13] LABS: #Monocytes 0.6 10x3/uL (0.0-1.1); #Neutrophils 4.8 10x3/uL (1.5-8.4); %Basophils 0.4 % (0.0-2.0); %Lymphocytes 20.5 % (18.0-47.0); %Monocytes 8.9 % (0.0-10.0); %Neutrophils 67.8 % (40.0-75.0); Hemoglobin 11.3 g/dL (12.0-15.5); Mean Corpuscular HGB CONC 32.1 g/dL (32.0-36.0); Mean Corpuscular Hemoglobin 27.1 pg (27.0-33.0); Mean Corpuscular Volume 84.4 fl (81.6-98.3); Mean Platelet Volume 8.8 fl (7.4-10.4); Platelet Count 303 10x3/uL (150-450); RBC Distribution Width 13.9 % (11.5-14.5); Red Blood Cell (RBC) Count 4.17 10x6/uL (3.90-5.03); White Blood Cell (WBC) Count 7.1 10x3/uL (3.5-10.5)
[2023-01-10 10:21] LABS: Anion Gap 14 mmol/L (10-20); BUN (Urea Nitrogen) 6 mg/dL (9.8-20.1); Calc. Creatinine Clearance 199 mL/min (70-130); Calcium 8.9 mg/dL (7.8-10.44); Carbon Dioxide 29 mmol/L (23-31); Chloride 96 mmol/L (98-107); Estimated GFR 98; Glucose 112 mg/dL (80-115); Potassium 3.9 mmol/L (3.5-5.1); Sodium 135 mmol/L (136-145)
[2023-01-10] MEDS: Mometasone/Formoterol 60 PUFF AER INH SCH ×2 (11:15→20:23)
[2023-01-10] MEDS: Acetaminophen 325 MG TAB PO PRN (12:27)
[2023-01-10] MEDS: QUEtiapine 100 MG TAB PO SCH (22:03)
[2023-01-10] MEDS: Estradiol 0.01% Vaginal Cream 42.5 gm Tube VAG SCH (22:04)
[2023-01-11] MEDS: Levothyroxine Sodium 100 MCG TAB PO SCH (05:22)
[2023-01-11] MEDS: Mometasone/Formoterol 60 PUFF AER INH SCH (06:55)
[2023-01-11] MEDS ORDERED: Hydrocortisone 1% Cream 30 GM TUBE TOP SCH (09:00)
[2023-01-11 09:51] VITALS: TEMP 98.4
[2023-01-11] MEDS: Miconazole 2% Cream 30 GM TUBE TOP SCH (09:58)
[2023-01-11] MEDS: Nystatin Powder 15 GM BOT TOP SCH (09:59)
[2023-01-11] MEDS: Polyethylene Glycol 3350 17 GM Packet PO SCH (10:01)
[2023-01-11] MEDS: Sodium Chloride 1 GM TAB PO SCH (10:05)
[2023-01-11 10:19] LABS: Anion Gap 15 mmol/L (10-20); BUN (Urea Nitrogen) 5 mg/dL (9.8-20.1); Calc. Creatinine Clearance 195 mL/min (70-130); Calcium 8.9 mg/dL (7.8-10.44); Carbon Dioxide 26 mmol/L (23-31); Chloride 96 mmol/L (98-107); Estimated GFR 98; Glucose 147 mg/dL (80-115); Potassium 3.9 mmol/L (3.5-5.1); Sodium 133 mmol/L (136-145)
[2023-01-11 13:23] VITALS: BP 147/66
== END 2023-01-11 13:48 | DRG 643 ==
LOC: CSHERS 17:37 → CSHIMCU 21:26 → CSHTELE 01-05 15:45
PROVIDERS: ADMIT Student in an Organized Health Care Education/Training Program; ATTEND Family Medicine
PROC: 5A09357 Assistance with Respiratory Ventilation, Less than 24 Consecutive Hours, Continuous Positive Airway Pressure (ICD-10-PCS; 2022-12-30)
PROC: 4A10X4Z Monitoring of Central Nervous Electrical Activity, External Approach (ICD-10-PCS; principal; 2023-01-04)
DX: E22.2 Syndrome of inappropriate secretion of antidiuretic hormone (principal); G93.41 Metabolic encephalopathy; L03.311 Cellulitis of abdominal wall; Z68.43 Body mass index [BMI] 50.0-59.9, adult; L03.116 Cellulitis of left lower limb; L03.115 Cellulitis of right lower limb; J44.9 Chronic obstructive pulmonary disease, unspecified; F31.9 Bipolar disorder, unspecified; E87.5 Hyperkalemia; E83.42 Hypomagnesemia; F41.9 Anxiety disorder, unspecified; I12.9 Hypertensive chronic kidney disease with stage 1 through stage 4 chronic kidney disease, or unspecified chronic kidney disease; E11.22 Type 2 diabetes mellitus with diabetic chronic kidney disease; E66.01 Morbid (severe) obesity due to excess calories; G47.30 Sleep apnea, unspecified; E87.6 Hypokalemia; M10.9 Gout, unspecified; F20.9 Schizophrenia, unspecified; N18.1 Chronic kidney disease, stage 1; D63.1 Anemia in chronic kidney disease; R56.9 Unspecified convulsions; N61.0 Mastitis without abscess; N30.90 Cystitis, unspecified without hematuria; I87.8 Other specified disorders of veins; Z88.0 Allergy status to penicillin; Z88.2 Allergy status to sulfonamides; Z87.891 Personal history of nicotine dependence; Z90.710 Acquired absence of both cervix and uterus; Z90.49 Acquired absence of other specified parts of digestive tract; Z90.89 Acquired absence of other organs; Z88.1 Allergy status to other antibiotic agents; Z98.890 Other specified postprocedural states; Z98.84 Bariatric surgery status
CPT/HCPCS: 36415; 36416; 70450; 70544; 70549; 70551; 70552; 71045; 80048; 80076; 80159; 80164; 80202; 80306; 80307; 82140; 82436; 82550; 82805; 83605; 83690; 83735; 83930; 83935; 84133; 84146; 84300; 84439; 84443; 84484; 85025; 87040; 87070; 87077; 87086; 87186; 87205; 93005; 93010; 94660; 94664; 94760; 94762; 95816; 95819; 95957; 97139; A9579; G0480; J0133; J0360; J0696; J1650; J1815; J2060; J2405; J3370; J3475; J3490; J7131; Q0177; S0028

== ENCOUNTER 2023-02-02 15:19 | Inpatient (IN) | payer MEDICARE ==
[~2023-02-02 15:19] MED LIST: Iopamidol 370 76% 100 ML VIAL ONE
[2023-02-02 15:55] LABS: #Monocytes 0.8 10x3/uL (0.0-1.1); #Neutrophils 5.5 10x3/uL (1.5-8.4); %Basophils 0.4 % (0.0-2.0); %Lymphocytes 16.8 % (18.0-47.0); %Monocytes 9.5 % (0.0-10.0); Hemoglobin 10.7 g/dL (12.0-15.5); Mean Corpuscular HGB CONC 31.7 g/dL (32.0-36.0); Mean Corpuscular Hemoglobin 27.3 pg (27.0-33.0); Mean Corpuscular Volume 86.2 fl (81.6-98.3); Mean Platelet Volume 8.3 fl (7.4-10.4); Platelet Count 150 10x3/uL (150-450); RBC Distribution Width 15.4 % (11.5-14.5); Red Blood Cell (RBC) Count 3.92 10x6/uL (3.90-5.03)
[2023-02-02 16:21] LABS: ALT (SGPT) 9 U/L (8-55); AST (SGOT) 9 U/L (5-34); Albumin 3.3 g/dL (3.4-4.8); Alkaline Phosphatase 63 U/L (40-110); Anion Gap 15 mmol/L (10-20); BUN (Urea Nitrogen) 6 mg/dL (9.8-20.1); Bilirubin, Total 0.2 mg/dL (0.2-1.2); Calc. Creatinine Clearance 0 mL/min (70-130); Calcium 8.3 mg/dL (7.8-10.44); Carbon Dioxide 31 mmol/L (23-31); Chloride 94 mmol/L (98-107); Estimated GFR 94; Globulin 2.3 g/dL (2.4-3.5); Glucose 113 mg/dL (80-115); Potassium 3.6 mmol/L (3.5-5.1); Protein, Total 5.6 g/dL (5.8-8.1); Sodium 136 mmol/L (136-145)
[2023-02-02] MEDS ORDERED: Furosemide 40 MG/4 ML VIAL ONE (17:30)
[2023-02-02] MEDS ORDERED: Dextrose 50% Abboject 50 ML SYRINGE SLOW IVP PRN (20:07)
[2023-02-02] MEDS ORDERED: Dextrose 5% in Water 1,000 ML IV PRN (20:07)
[2023-02-02] MEDS ORDERED: Acetaminophen 650 MG Suppository PR PRN (20:07)
[2023-02-02] MEDS ORDERED: Ondansetron PF 4 MG/2 ML Vial IVP PRN (20:07)
[2023-02-02] MEDS ORDERED: Ondansetron ODT 4 MG TAB PO PRN (20:07)
[2023-02-02] MEDS ORDERED: HumaLOG 300 UNITS/3 ML VIAL SC PRN ×2 (20:07)
[2023-02-02] MEDS ORDERED: Glucagon 1 MG/ML KIT IM PRN (20:07)
[2023-02-02] MEDS ORDERED: Ipratropium/Albuterol 3 ML NEB NEB PRN (20:51)
[2023-02-02] MEDS ORDERED: Electrolyte Replacement Protocol 1 EACH FS PRN (21:00)
[2023-02-02 21:32] LABS: Magnesium 1.8 mg/dL (1.6-2.6)
[2023-02-02] MEDS ORDERED: Magnesium 2 GM/50 ML(in water) 2 GM in Premix Bag 1 BAG IVPB SCH (22:30)
[2023-02-02] MEDS: Acetaminophen 325 MG TAB PO PRN (22:34)
[2023-02-03] MEDS: traMADol HCl 50 MG TAB PO PRN ×2 (02:43→11:13)
[2023-02-03 06:33] LABS: Anion Gap 14 mmol/L (10-20); BUN (Urea Nitrogen) 4 mg/dL (9.8-20.1); Calc. Creatinine Clearance 203 mL/min (70-130); Carbon Dioxide 33 mmol/L (23-31); Chloride 95 mmol/L (98-107); Potassium 3.3 mmol/L (3.5-5.1); Sodium 139 mmol/L (136-145)
[2023-02-03 06:34] LABS: Calcium 8.3 mg/dL (7.8-10.44); Estimated GFR 97; Glucose 101 mg/dL (80-115); Magnesium 2.1 mg/dL (1.6-2.6)
[2023-02-03] MEDS: Furosemide 40 MG/4 ML VIAL SLOW IVP SCH ×2 (06:46→14:14)
[2023-02-03 06:52] LABS: #Neutrophils 5.2 10x3/uL (1.5-8.4); %Basophils 0.5 % (0.0-2.0); %Eosinophils 0.1 % (0.0-6.0); %Lymphocytes 15.8 % (18.0-47.0); %Monocytes 11.9 % (0.0-10.0); %Neutrophils 68.7 % (40.0-75.0); Hemoglobin 10.3 g/dL (12.0-15.5); Mean Corpuscular HGB CONC 31.3 g/dL (32.0-36.0); Mean Corpuscular Hemoglobin 27.4 pg (27.0-33.0); Mean Corpuscular Volume 87.5 fl (81.6-98.3); Mean Platelet Volume 9.3 fl (7.4-10.4); Platelet Count 164 10x3/uL (150-450); RBC Distribution Width 15.6 % (11.5-14.5); Red Blood Cell (RBC) Count 3.76 10x6/uL (3.90-5.03); White Blood Cell (WBC) Count 7.6 10x3/uL (3.5-10.5)
[2023-02-03 06:53] LABS: #Monocytes 0.9 10x3/uL (0.0-1.1)
[2023-02-03] MEDS ORDERED: Potassium Chloride 20 MEQ TAB PO SCH (12:00)
[2023-02-03 16:37] LABS: Potassium 4.5 mmol/L (3.5-5.1)
[2023-02-03 17:43] LABS: Phosphorus 5.2 mg/dL (2.3-4.7)
[2023-02-03] MEDS: QUEtiapine 100 MG TAB PO SCH (21:42)
[2023-02-04] MEDS: Acetaminophen 325 MG TAB PO PRN ×2 (04:13→10:48)
[2023-02-04 05:06] LABS: #Monocytes 1.1 10x3/uL (0.0-1.1); #Neutrophils 5.2 10x3/uL (1.5-8.4); %Basophils 0.4 % (0.0-2.0); %Lymphocytes 19.5 % (18.0-47.0); %Monocytes 13.8 % (0.0-10.0); %Neutrophils 63.8 % (40.0-75.0); Hemoglobin 9.9 g/dL (12.0-15.5); Mean Corpuscular HGB CONC 30.5 g/dL (32.0-36.0); Mean Corpuscular Hemoglobin 27.3 pg (27.0-33.0); Mean Corpuscular Volume 89.5 fl (81.6-98.3); Mean Platelet Volume 8.5 fl (7.4-10.4); Platelet Count 151 10x3/uL (150-450); RBC Distribution Width 15.5 % (11.5-14.5); Red Blood Cell (RBC) Count 3.63 10x6/uL (3.90-5.03); White Blood Cell (WBC) Count 8.1 10x3/uL (3.5-10.5)
[2023-02-04 05:17] LABS: Anion Gap 14 mmol/L (10-20); BUN (Urea Nitrogen) 6 mg/dL (9.8-20.1); Calc. Creatinine Clearance 216 mL/min (70-130); Calcium 7.9 mg/dL (7.8-10.44); Carbon Dioxide 37 mmol/L (23-31); Chloride 92 mmol/L (98-107); Estimated GFR 99; Glucose 116 mg/dL (80-115); Potassium 3.4 mmol/L (3.5-5.1); Sodium 140 mmol/L (136-145)
[2023-02-04] MEDS: Levothyroxine Sodium 100 MCG TAB PO SCH (05:59)
[2023-02-04] MEDS: Furosemide 40 MG/4 ML VIAL SLOW IVP SCH ×2 (05:59→15:28)
[2023-02-04] MEDS ORDERED: Potassium Chloride 20 MEQ TAB PO SCH (08:00)
[2023-02-04] MEDS: Spironolactone 25 MG TAB PO SCH (09:07)
[2023-02-04] MEDS: QUEtiapine 100 MG TAB PO SCH (21:05)
[2023-02-05] MEDS: traMADol HCl 50 MG TAB PO PRN ×2 (00:34→21:16)
[2023-02-05 04:28] LABS: #Monocytes 1.1 10x3/uL (0.0-1.1); #Neutrophils 4.1 10x3/uL (1.5-8.4); %Basophils 0.3 % (0.0-2.0); %Lymphocytes 26.3 % (18.0-47.0); %Neutrophils 56.5 % (40.0-75.0); Mean Corpuscular HGB CONC 30.6 g/dL (32.0-36.0); Mean Corpuscular Hemoglobin 27.2 pg (27.0-33.0); Mean Corpuscular Volume 88.9 fl (81.6-98.3); Mean Platelet Volume 8.4 fl (7.4-10.4); Platelet Count 146 10x3/uL (150-450); RBC Distribution Width 15.5 % (11.5-14.5); Red Blood Cell (RBC) Count 3.68 10x6/uL (3.90-5.03); White Blood Cell (WBC) Count 7.2 10x3/uL (3.5-10.5)
[2023-02-05 04:44] LABS: Anion Gap 17 mmol/L (10-20); BUN (Urea Nitrogen) 7 mg/dL (9.8-20.1); Calc. Creatinine Clearance 220 mL/min (70-130); Calcium 8.4 mg/dL (7.8-10.44); Carbon Dioxide 36 mmol/L (23-31); Chloride 89 mmol/L (98-107); Estimated GFR 99; Glucose 88 mg/dL (80-115); Sodium 138 mmol/L (136-145)
[2023-02-05] MEDS: Furosemide 40 MG/4 ML VIAL SLOW IVP SCH ×2 (06:46→15:22)
[2023-02-05] MEDS: Levothyroxine Sodium 100 MCG TAB PO SCH (06:46)
[2023-02-05] MEDS: Spironolactone 25 MG TAB PO SCH (08:53)
[2023-02-05] MEDS: QUEtiapine 100 MG TAB PO SCH (21:15)
[2023-02-06 04:55] LABS: #Monocytes 0.9 10x3/uL (0.0-1.1); #Neutrophils 3.8 10x3/uL (1.5-8.4); %Basophils 0.3 % (0.0-2.0); %Lymphocytes 26.1 % (18.0-47.0); %Monocytes 13.4 % (0.0-10.0); %Neutrophils 58.4 % (40.0-75.0); Hemoglobin 9.7 g/dL (12.0-15.5); Mean Corpuscular HGB CONC 31.1 g/dL (32.0-36.0); Mean Corpuscular Hemoglobin 27.4 pg (27.0-33.0); Mean Corpuscular Volume 88.1 fl (81.6-98.3); Mean Platelet Volume 8.7 fl (7.4-10.4); Platelet Count 147 10x3/uL (150-450); Red Blood Cell (RBC) Count 3.54 10x6/uL (3.90-5.03); White Blood Cell (WBC) Count 6.6 10x3/uL (3.5-10.5)
[2023-02-06 05:07] LABS: BUN (Urea Nitrogen) 8 mg/dL (9.8-20.1); Calc. Creatinine Clearance 216 mL/min (70-130); Calcium 8.4 mg/dL (7.8-10.44); Estimated GFR 99; Glucose 86 mg/dL (80-115)
[2023-02-06 05:14] LABS: Anion Gap 20 mmol/L (10-20); Carbon Dioxide 33 mmol/L (23-31); Chloride 87 mmol/L (98-107); Potassium 3.8 mmol/L (3.5-5.1); Sodium 136 mmol/L (136-145)
[2023-02-06] MEDS: Levothyroxine Sodium 100 MCG TAB PO SCH (06:45)
[2023-02-06] MEDS: Furosemide 40 MG/4 ML VIAL SLOW IVP SCH (06:45)
[2023-02-06 07:50] VITALS: BMI 54.3
[2023-02-06] MEDS: NIFEdipine XL 30 MG TAB PO SCH (08:17)
[2023-02-06] MEDS: Spironolactone 25 MG TAB PO SCH (08:19)
[2023-02-06] MEDS: Furosemide 40 MG TAB PO SCH (13:46)
[2023-02-06] MEDS: QUEtiapine 100 MG TAB PO SCH (22:02)
[2023-02-07] MEDS: Levothyroxine Sodium 100 MCG TAB PO SCH (05:45)
[2023-02-07 06:14] LABS: #Monocytes 0.8 10x3/uL (0.0-1.1); #Neutrophils 3.6 10x3/uL (1.5-8.4); %Basophils 0.3 % (0.0-2.0); %Lymphocytes 25.1 % (18.0-47.0); %Monocytes 13.7 % (0.0-10.0); %Neutrophils 59.4 % (40.0-75.0); Mean Corpuscular HGB CONC 30.3 g/dL (32.0-36.0); Mean Corpuscular Hemoglobin 26.8 pg (27.0-33.0); Mean Corpuscular Volume 88.5 fl (81.6-98.3); Mean Platelet Volume 9.6 fl (7.4-10.4); Platelet Count 161 10x3/uL (150-450); RBC Distribution Width 14.9 % (11.5-14.5); Red Blood Cell (RBC) Count 3.73 10x6/uL (3.90-5.03)
[2023-02-07 06:37] LABS: Anion Gap 18 mmol/L (10-20); BUN (Urea Nitrogen) 9 mg/dL (9.8-20.1); Calc. Creatinine Clearance 196 mL/min (70-130); Calcium 8.5 mg/dL (7.8-10.44); Carbon Dioxide 34 mmol/L (23-31); Chloride 87 mmol/L (98-107); Estimated GFR 98; Glucose 85 mg/dL (80-115); Sodium 135 mmol/L (136-145)
[2023-02-07 06:41] LABS: Potassium 4.1 mmol/L (3.5-5.1)
[2023-02-07] MEDS ORDERED: Losartan 25 MG TAB PO SCH (09:00)
[2023-02-07] MEDS: NIFEdipine XL 30 MG TAB PO SCH (09:53)
[2023-02-07] MEDS: Furosemide 40 MG TAB PO SCH (09:53)
[2023-02-07] MEDS: Spironolactone 25 MG TAB PO SCH (09:53)
[2023-02-07 12:32] VITALS: BP 118/69; TEMP 98.4
== END 2023-02-07 12:15 | disposition home or self-care (01) | DRG 291 ==
LOC: CSHERS 15:19 → CSHTELE 21:41
PROVIDERS: ADMIT Student in an Organized Health Care Education/Training Program; ATTEND Internal Medicine
DX: I11.0 Hypertensive heart disease with heart failure (principal); I50.33 Acute on chronic diastolic (congestive) heart failure; J96.01 Acute respiratory failure with hypoxia; Z68.43 Body mass index [BMI] 50.0-59.9, adult; E11.9 Type 2 diabetes mellitus without complications; J44.9 Chronic obstructive pulmonary disease, unspecified; R51.9 Headache, unspecified; M10.9 Gout, unspecified; E78.00 Pure hypercholesterolemia, unspecified; E03.9 Hypothyroidism, unspecified; I89.0 Lymphedema, not elsewhere classified; E66.01 Morbid (severe) obesity due to excess calories; G47.33 Obstructive sleep apnea (adult) (pediatric); F31.9 Bipolar disorder, unspecified; Z87.891 Personal history of nicotine dependence; Z88.2 Allergy status to sulfonamides; Z88.0 Allergy status to penicillin; Z88.1 Allergy status to other antibiotic agents; Z79.84 Long term (current) use of oral hypoglycemic drugs; Z79.899 Other long term (current) drug therapy; Z90.710 Acquired absence of both cervix and uterus; Z90.89 Acquired absence of other organs; Z90.49 Acquired absence of other specified parts of digestive tract; I27.20 Pulmonary hypertension, unspecified
CPT/HCPCS: 36415; 36416; 71045; 71275; 80048; 80053; 83735; 83880; 84100; 84443; 84484; 85025; 85379; 93005; 93306; 94660; 94760; 94762; 96374; 97139; J1650; J1940; J3475; Q9967